=== PATIENT | male | born 1930 | race Caucasian/White ===

== ENCOUNTER 2017-08-03 10:56 | Emergency (ER) | payer OTHER ==
[2017-08-03 11:10] VITALS: BMI 27.4
--- NOTE | 2017-08-03 11:31 | DR.GENAD ---
HPI - PCP Primary Care Physician: MICHAELA HORNE - Complaint/Symptoms Chief Complaint Doctors Comments: Patient presents to the ED with complaint that his heart rate had been changing more frequently than usual. It ranges from 40s-70. Recently he became drowsy and listless according to daughter. He wore a Holter Monitor one year ago but was not an candidate for a pacemaker. He states that the lower heart rate is getting lower. Chief Complaint:: PTS FAMILY STATES " HIS BP HAS BEEN DROPPING AND HIS HEART RATE" .. THIS HAS BEEN GOING ON FOR A WHILE PT SAW .. PT SAW DR. SANTILLAN AND PT HAD 4 AORTIC STENTS FOR AN ANURYSMS AND STENTS PLACED .. PT HAS A HEART MONITOR PLACED AND ITS WAS DECIDED THAT HE DID NOT NEED A PACEMAKER.. Self Treatment fo Chief Complaint: PT IS ALERT AND ABLE TO GIVE HX,, NO DISTRESS NOTED .. - Source History Provided: Patient - Mode of Arrival Mode of Arrival: Wheelchair - Timing Onset of Chief Complaint: 05/03/17 PMH - PMH Past Medical History: Yes Past Medical History: Dyslipidemia, Hypertension Past Surgical History: Yes Surgical History: AAA Repair Past Surgical History Comment: AORTIC STENT.. 10/17/13 - Family History History of Family Medical Conditions: No - Social History Does patient currently use any type of tobacco product: No Have you used tobacco products in the last 12 months: No Type of Tobacco Use: None Does any household member use tobacco: No Alcohol Use: None Do you use any recreational Drugs:: No Lives With: Family Lives Where: Home - infectious screening In the last 2 months have you had wt loss of >10#?: NO Have you had fever, night sweats or hemotysis?: No Have you traveled outside the country in the last 6 months?: No Isolation: Standard ROS - Review of Systems Eyes: No Symptoms Reported ENTM: No Symptoms Reported Respiratoy: No Symptoms Reported Cardiovascular: No Symptoms Reported Gastrointestinal/Abdominal: No Symptoms Reported Genitourinary: No Symptoms Reported Neurological: No Symptoms Reported Musculoskeletal: No Symptoms Reported Integumentary: No Symptoms Reported Hematologic/Lymphatic: No Symptoms Reported Endocrine: No Symptoms Reported Psychiatric: No Symptoms Reported All Other Systems: Reviewed and Negative PE - Vital Signs Vitals: Temperature 97.7 F Pulse Rate [Left Brachial] 53 Pulse Rate 55 Respiratory Rate 18 Blood Pressure [Left Arm] 163/73 Blood Pressure [Right Arm] 127/56 Blood Pressure 196/86 O2 Sat by Pulse Oximetry 97 - General Limitations: No Limitations General Appearance: Alert, In No Apparent Distress - Head Head Exam: Normal Inspection, Atraumatic - Eyes Eye exam: Normal Appearance, PERRL, EOMI - ENT ENT Exam: Normal Exam, Normal Oropharynx External Ear Exam: Normal External Inspection TM/Canal Exam: Bilateral Normal Nose Exam: Normal Nose Exam Mouth Exam: Normal Inspection Throat Exam: Normal Inspection - Neck Neck Exam: Normal Inspection - Chest Chest Inspection: Normal Inspection, Symmetric Chest Wall Rise - Respiratory Respiratory Exam: Normal Lung Sounds Bilat Respiratory Exam: Bilateral Clear to Auscultation - Cardiovascular Cardiovascular Exam: Regular Rate, Normal Rhythm - Abdominal Exam Abdominal Exam: Normal Inspection, Normal Bowel Sounds Abdominal Tenderness: negative: RUQ, RLQ, LUQ, LLQ, Epigastrium, Suprapubic, Diffuse, Mild, Moderate, Severe, Other - Extremities Extremities Exam: Normal Inspection, Full ROM - Back Back Exam: Normal Inspection, Full ROM - Neurologic Neurological Exam: Alert, Oriented X3, CN II-XII Intact - Psychiatric Psychiatric Exam: Normal Affect, Normal Mood - Skin Skin Exam: Warm, Dry, Intact ROR - Labs Reviewed Result Diagrams: 08/03/17 11:42 08/03/17 11:42 Laboratory: WBC 6.7 X10^3/uL (3.6-10.0) 08/03/17 11:42 RBC 4.54 X10^6/uL (4.7-6.0) L 08/03/17 11:42 Hgb 13.9 g/dL (13.5-18.0) 08/03/17 11:42 Hct 40.7 % (42.0-54.0) L 08/03/17 11:42 MCV 89.7 fL (80.0-100.0) 08/03/17 11:42 MCH 30.7 pg (27.0-34.0) 08/03/17 11:42 MCHC 34.3 g/dL (33.0-35.0) 08/03/17 11:42 RDW 13.6 % (11.6-16.5) 08/03/17 11:42 Plt Count 256 X10^3/uL (150.0-450.0) 08/03/17 11:42 MPV 7.1 fL (7.4-11.0) L 08/03/17 11:42 Neut % 59.1 % (42.0-75.0) 08/03/17 11:42 Lymph % 26.5 % (21.0-51.0) 08/03/17 11:42 [place] % 10.3 % (0.0-13.0) 08/03/17 11:42 Eos % 3.1 % (0.9-2.9) H 08/03/17 11:42 Baso % 1.0 % (0.2-1.0) 08/03/17 11:42 Neut # 4.0 x10^3/uL (2.2-4.8) 08/03/17 11:42 Lymph # 1.8 X10^3/uL (1.3-2.9) 08/03/17 11:42 [place] # 0.7 x10^3/uL (0.3-0.8) 08/03/17 11:42 Eos # 0.2 x10^3/uL (0.0-0.2) 08/03/17 11:42 Baso # 0.1 X10^3/uL (0.0-0.1) 08/03/17 11:42 Absolute Nucleated RBC 0.0 /100WBC 08/03/17 11:42 Sodium 137 mmol/L (136-145) 08/03/17 11:42 Corrected Sodium TNP 08/03/17 11:42 Potassium 4.5 mmol/L (3.5-5.1) 08/03/17 11:42 Chloride 104 mmol/L (98-107) 08/03/17 11:42 Carbon Dioxide 25.8 mmol/L (21-32) 08/03/17 11:42 BUN 12 mg/dL (7-18) 08/03/17 11:42 Creatinine 1.52 mg/dL (0.70-1.30) H 08/03/17 11:42 Est GFR (MDRD) Af Amer 56 (>60) L 08/03/17 11:42 Est GFR (MDRD) Non-Af 46 (>60) L 08/03/17 11:42 Glucose 88 mg/dL (65-99) 08/03/17 11:42 Calcium 8.5 mg/dL (8.5-10.1) 08/03/17 11:42 Corrected Calcium 9.1 mg/dL (8.5-10.1) 08/03/17 11:42 Total Bilirubin 0.60 mg/dL (0.2-1.0) 08/03/17 11:42 AST 16 Units/L (15-37) 08/03/17 11:42 ALT 16 Units/L (12-78) 08/03/17 11:42 Alkaline Phosphatase 84 Units/L (46-116) 08/03/17 11:42 Total Protein 7.1 g/dL (6.4-8.2) 08/03/17 11:42 Albumin 3.3 g/dL (3.4-5.0) L 08/03/17 11:42 Globulin 3.8 g/dL (2.5-4.5) 08/03/17 11:42 Albumin/Globulin Ratio 0.9 Ratio (1.1-2.1) L 08/03/17 11:42 - XRAY XRAY Interpreted by: Radiologist - Diagnosis Discharge Problem: Chest pain, rule out acute myocardial infarction, Bradycardia - Discharge Plan Condition: Stable - Follow ups/Referrals Follow ups/Referrals: NFD,None [Primary Care Provider] - 3 days - Instructions
[2017-08-03 11:53] LABS: BASOPHILS # (AUTO) 0.1 X10^3/uL (0.0-0.1); EOSINOPHILS # (AUTO) 0.2 x10^3/uL (0.0-0.2); EOSINOPHILS % (AUTO) 3.1 % (0.9-2.9); HEMATOCRIT 40.7 % (42.0-54.0); HEMOGLOBIN 13.9 g/dL (13.5-18.0); LYMPHOCYTES # (AUTO) 1.8 X10^3/uL (1.3-2.9); LYMPHOCYTES % (AUTO) 26.5 % (21.0-51.0); MEAN CORPUSCULAR HEMOGLOBIN 30.7 pg (27.0-34.0); MEAN CORPUSCULAR HGB CONC 34.3 g/dL (33.0-35.0); MEAN CORPUSCULAR VOLUME 89.7 fL (80.0-100.0); MEAN PLATELET VOLUME 7.1 fL (7.4-11.0); MONOCYTES # (AUTO) 0.7 x10^3/uL (0.3-0.8); MONOCYTES % (AUTO) 10.3 % (0.0-13.0); NEUTROPHILS % (AUTO) 59.1 % (42.0-75.0); PLATELET COUNT 256 X10^3/uL (150.0-450.0); RED BLOOD COUNT 4.54 X10^6/uL (4.7-6.0); RED CELL DISTRIBUTION WIDTH 13.6 % (11.6-16.5); WHITE BLOOD COUNT 6.7 X10^3/uL (3.6-10.0)
[2017-08-03 11:58] LABS: ALANINE AMINOTRANSFERASE 16 Units/L (12-78); ALBUMIN 3.3 g/dL (3.4-5.0); ALKALINE PHOSPHATASE 84 Units/L (46-116); ASPARTATE AMINO TRANSFERASE 16 Units/L (15-37); BLOOD UREA NITROGEN 12 mg/dL (7-18); CALCIUM 8.5 mg/dL (8.5-10.1); CARBON DIOXIDE 25.8 mmol/L (21-32); CHLORIDE 104 mmol/L (98-107); COR CA(FOR HYPOALB) 9.1 mg/dL (8.5-10.1); CREATININE 1.52 mg/dL (0.70-1.30); SODIUM 137 mmol/L (136-145); TOTAL PROTEIN 7.1 g/dL (6.4-8.2); eGFR BLACK RACES 56 (>60); eGFR NON BLACK RACES 46 (>60)
[2017-08-03] MEDS ORDERED: ZOFRAN INJ 4 MG VIAL IVP PRN (12:50)
[2017-08-03 13:05] LABS: CKMB % 1.3 % (<4); CREATINE KINASE 78 Units/L (39-308); CREATINE KINASE MB < 1.0 ng/mL (0-4.0); MAGNESIUM 2.3 mg/dL (1.7-2.9); TROPONIN I < 0.02 ng/mL (0-1.5)
--- NOTE | 2017-08-03 13:40 | RAD ---
HISTORY: Chest pain and Eduard cardia Study: Portable chest Comparison: February 09, 2016 Findings: The trachea is midline. The cardiac silhouette is unremarkable. The lungs are hyperinflated and the re is chronic diffuse interstitial lung disease as before. There is no focal consolidation or effusio n.. The bony thorax is unremarkable. IMPRESSION: 1. Apparent COPD, no definite acute disease. Reported By:
[2017-08-03 18:10] LABS: CKMB % 1.3 % (<4); CREATINE KINASE 75 Units/L (39-308); CREATINE KINASE MB < 1.0 ng/mL (0-4.0); TROPONIN I 0.02 ng/mL (0-1.5)
[2017-08-03] MEDS: LIPITOR TAB 20 MG PO SCH (21:34)
[2017-08-03 23:58] LABS: CKMB % 1.5 % (<4); CREATINE KINASE 68 Units/L (39-308); CREATINE KINASE MB < 1.0 ng/mL (0-4.0); TROPONIN I 0.02 ng/mL (0-1.5)
[2017-08-04 05:42] LABS: CHOL/HDL RATIO 4.1 (0.0-5.0)
[2017-08-04 05:44] LABS: CKMB % 1.6 % (<4); CREATINE KINASE 64 Units/L (39-308); CREATINE KINASE MB < 1.0 ng/mL (0-4.0); TROPONIN I 0.02 ng/mL (0-1.5)
[2017-08-04 06:08] LABS: BASOPHILS # (AUTO) 0.1 X10^3/uL (0.0-0.1); BASOPHILS % (AUTO) 0.9 % (0.2-1.0); EOSINOPHILS # (AUTO) 0.3 x10^3/uL (0.0-0.2); HEMATOCRIT 39.9 % (42.0-54.0); HEMOGLOBIN 13.6 g/dL (13.5-18.0); LYMPHOCYTES # (AUTO) 1.6 X10^3/uL (1.3-2.9); LYMPHOCYTES % (AUTO) 25.6 % (21.0-51.0); MEAN CORPUSCULAR HEMOGLOBIN 30.5 pg (27.0-34.0); MEAN CORPUSCULAR HGB CONC 34.2 g/dL (33.0-35.0); MEAN CORPUSCULAR VOLUME 89.3 fL (80.0-100.0); MEAN PLATELET VOLUME 7.2 fL (7.4-11.0); MONOCYTES # (AUTO) 0.6 x10^3/uL (0.3-0.8); MONOCYTES % (AUTO) 8.9 % (0.0-13.0); NEUTROPHILS # (AUTO) 3.8 x10^3/uL (2.2-4.8); NEUTROPHILS % (AUTO) 60.6 % (42.0-75.0); PLATELET COUNT 248 X10^3/uL (150.0-450.0); RED BLOOD COUNT 4.47 X10^6/uL (4.7-6.0); RED CELL DISTRIBUTION WIDTH 13.5 % (11.6-16.5); WHITE BLOOD COUNT 6.2 X10^3/uL (3.6-10.0)
[2017-08-04] MEDS: NORVASC TAB 5 MG PO SCH (09:33)
[2017-08-04] MEDS: ASPIRIN 81 MG CHEWTAB PO SCH (09:33)
[2017-08-04] MEDS ORDERED: CATAPRES TAB 0.2 MG PO PRN (09:59)
[2017-08-04] MEDS ORDERED: CELECOXIB PO PRN (10:00)
[2017-08-04] MEDS ORDERED: CELEBREX PO PRN (10:02)
--- NOTE | 2017-08-04 11:17 | DR.H&P ---
H&P - History & Physical for Day of: H&P Date: 08/03/17 - Chief Complaint Chief Complaint: chest pain, low blood pressure, low heart rate - Allergies Allergies/Adverse Reactions: Allergies Allergy/AdvReac Type Severity Reaction Status Date / Time No Known Drug Allergies Allergy Verified 08/03/17 11:46 - History of Present Illness History of Present Illness: is a 87 year old patient of ours who presented to the emergency room with complaints of low blood pressure and heart rate. Patient reported that symptoms have been present for a while, but have been worse the past few days. Patient reports having worn a heart monitor ordered by , but it was decided that patient did not require placement of a pacemaker at that time. He reports a history of aortic aneurysm for which 4 aortic stents were placed in 2012 by . Patient states that his heart rate usually fluctuates between 40-70 beats per minute. Patients daughter states that patient has been drowsy and listless today. On arrival to the ER, vitals were 97.7-55-22-97%-196/86. CBC, CMP, EKG, and chest xray were obtained. Abnormal lab values include the following: RBC 4.54, Hct 40.7, MPV 7.1, Creatinine 1.52, GFR af 56, GFR non 46, Albumin 3.3, A/G Ratio 0.9. EKG reported Sinus Rhythm, Rate=61. Chest xray reported apparent COPD, no definite acute disease. Patient admitted to the hospital as observation for further treatment and evaluation of chest pain and bradycardia. We started him on Lipitor 20mg HS and Zofran 4mg iv q8h prn nausea. Serial cardiac enzymes and EKGs will be obtained and patient placed on continuous electronic device monitor. Will follow up with labs in the morning. - Past Medical History Past Medical History: Dyslipidemia, Hypertension Additional Medical History: Left Renal Mass, Back Pain, Spinal Stenosis, AAA repair with aortic stent placement - Past Surgical History Surgical History: AAA Repair - Social History Does patient currently use any type of tobacco product: No Have you used tobacco products in the last 12 months: No Type of Tobacco Use: None Does any household member use tobacco: No Alcohol Use: None - Medications Home Medications: Celecoxib [Celecoxib] 1 cap PO DAILY PRN 08/03/17 [History Confirmed 08/03/17] Clonidine HCl [CATAPRES 0.2 MG TAB *] 0.2 mg PO PRN PRN 08/03/17 [History Confirmed 08/03/17] - Review of Systems Constitutional: Weakness Eyes: No Symptoms Reported ENT: No Symptoms Reported Respiratory: No Symptoms Reported Cardiovascular: Chest Pain Gastrointestinal: No Symptoms Reported Genitourinary: No Symptoms Reported Musculoskeletal: No Symptoms Reported Skin: No Symptoms Reported Neurological: Weakness - Physical Exam Vital Signs: Temperature 97.4 F Pulse Rate [Left Brachial] 49 Pulse Rate 55 Respiratory Rate 18 Blood Pressure [Left Arm] 163/73 Blood Pressure [Right Arm] 177/80 Blood Pressure 196/86 O2 Sat by Pulse Oximetry 97 Oriented: Normal Eyes: Normal Ear: Normal Nose: Normal Throat: Normal Respiratory: Clear Throughout Cardiovascular: Bradycardia : Normal Auscultation: Bowel Sounds: Normal Palpation: Normal Tenderness: Normal Skin: Normal Musculoskeletal: Normal Psychiatric: Normal Mood Description: Calm Affect: Normal Speech Pattern: Clear - Assessment/Plan (1) Chest pain, rule out acute myocardial infarction Status: Acute Plan: SERIAL CARDIAC ENZYMES AND EKG, TELEMETRY, CONTINUE TO MONITOR (2) Bradycardia Status: Acute Plan: SERIAL CARDIAC ENZYMES AND EKG, TELEMETRY, CONTINUE TO MONITOR
[2017-08-04] MEDS: LIPITOR TAB 20 MG PO SCH (21:44)
[2017-08-05 06:06] LABS: BASOPHILS # (AUTO) 0.1 X10^3/uL (0.0-0.1); BASOPHILS % (AUTO) 0.9 % (0.2-1.0); EOSINOPHILS # (AUTO) 0.2 x10^3/uL (0.0-0.2); EOSINOPHILS % (AUTO) 3.4 % (0.9-2.9); HEMATOCRIT 40.5 % (42.0-54.0); LYMPHOCYTES # (AUTO) 1.8 X10^3/uL (1.3-2.9); LYMPHOCYTES % (AUTO) 25.6 % (21.0-51.0); MEAN CORPUSCULAR HEMOGLOBIN 30.6 pg (27.0-34.0); MEAN CORPUSCULAR HGB CONC 34.6 g/dL (33.0-35.0); MEAN CORPUSCULAR VOLUME 88.4 fL (80.0-100.0); MEAN PLATELET VOLUME 7.4 fL (7.4-11.0); MONOCYTES # (AUTO) 0.6 x10^3/uL (0.3-0.8); NEUTROPHILS # (AUTO) 4.3 x10^3/uL (2.2-4.8); NEUTROPHILS % (AUTO) 61.1 % (42.0-75.0); PLATELET COUNT 248 X10^3/uL (150.0-450.0); RED BLOOD COUNT 4.58 X10^6/uL (4.7-6.0); RED CELL DISTRIBUTION WIDTH 13.5 % (11.6-16.5)
[2017-08-05 06:21] LABS: ALANINE AMINOTRANSFERASE 15 Units/L (12-78); ALBUMIN 3.1 g/dL (3.4-5.0); ALKALINE PHOSPHATASE 74 Units/L (46-116); ASPARTATE AMINO TRANSFERASE 16 Units/L (15-37); BLOOD UREA NITROGEN 18 mg/dL (7-18); CALCIUM 8.6 mg/dL (8.5-10.1); CHLORIDE 104 mmol/L (98-107); COR CA(FOR HYPOALB) 9.3 mg/dL (8.5-10.1); CREATININE 1.34 mg/dL (0.70-1.30); SODIUM 138 mmol/L (136-145); TOTAL PROTEIN 6.6 g/dL (6.4-8.2); eGFR BLACK RACES > 60 (>60); eGFR NON BLACK RACES 54 (>60)
--- NOTE | 2017-08-05 06:58 | RAD ---
HISTORY: Shortness of breath Study: Single view of the chest. Comparison: 08/03/2017 Findings: The cardiomediastinal silhouette is normal. No focal consolidations, pleural effusions or pneumothora x. Osseous structures demonstrate no acute abnormality. Redemonstration of increased reticular are th roughout the lungs bilaterally. Hyperexpansion. IMPRESSION: 1. No acute cardiopulmonary process. 2. COPD. Reported By:
[2017-08-05] MEDS: ASPIRIN 81 MG CHEWTAB PO SCH (08:35)
[2017-08-05] MEDS: NORVASC TAB 5 MG PO SCH (08:35)
[2017-08-05 12:45] VITALS: BP 166/73
== END 2017-08-05 15:45 | disposition home or self-care (01) ==
LOC: ER 11:31 → OBS 15:00 → MED/SURG 19:37
PROVIDERS: ADMIT Internal Medicine; ATTEND Internal Medicine
DX: R07.89 Other chest pain (principal); R00.1 Bradycardia, unspecified; I95.89 Other hypotension; J44.9 Chronic obstructive pulmonary disease, unspecified; E78.2 Mixed hyperlipidemia; I10 Essential (primary) hypertension; R94.31 Abnormal electrocardiogram [ECG] [EKG]
CPT/HCPCS: 36415; 71010; 80053; 80061; 82550; 82553; 83735; 84484; 85025; 85610; 93005; 93010; 94760; 96365; 99284; A4216; A4222; G0378

== ENCOUNTER → 2017-09-21 | Outpatient (CLI) | payer OTHER ==
--- NOTE | 2017-09-21 10:10 | US ---
HISTORY: Follow-up abdominal aortic aneurysm, status post graft. Study: Ultrasound of the abdominal aorta Comparison: CTA of the abdomen done 10/04/2016. Technique: Grayscale and color Doppler imaging of the abdominal aorta is provided. Findings: There is an infrarenal abdominal aortic aneurysm measures 3.18 cm in maximum AP diameter. This extend s for a length of about 4 cm. No evidence of dissection or leakage is seen. There is good color flow involving through the endo graft region into both common iliac arteries. IMPRESSION: Stable infrarenal abdominal aortic aneurysm. This measures about 3.18 cm in maximum AP diameter and e xtends for a length of 4 cm. No dissection or leakage is seen. There is good color flow present throu gh the aortic endograft into both common iliac arteries . Reported By:
== END ==
LOC: RAD 09:03
PROVIDERS: ATTEND Thoracic Surgery (Cardiothoracic Vascular Surgery)
DX: I71.4 Abdominal aortic aneurysm, without rupture (principal)
CPT/HCPCS: 76770

== ENCOUNTER → 2017-12-11 | Outpatient (CLI) | payer OTHER ==
[2017-12-11 09:26] LABS: BASOPHILS # (AUTO) 0.1 X10^3/uL (0.0-0.1); BASOPHILS % (AUTO) 1.1 % (0.2-1.0); EOSINOPHILS # (AUTO) 0.2 x10^3/uL (0.0-0.2); EOSINOPHILS % (AUTO) 2.2 % (0.9-2.9); HEMATOCRIT 42.6 % (42.0-54.0); HEMOGLOBIN 14.5 g/dL (13.5-18.0); LYMPHOCYTES # (AUTO) 1.6 X10^3/uL (1.3-2.9); LYMPHOCYTES % (AUTO) 22.4 % (21.0-51.0); MEAN CORPUSCULAR HEMOGLOBIN 30.5 pg (27.0-34.0); MEAN CORPUSCULAR VOLUME 89.6 fL (80.0-100.0); MEAN PLATELET VOLUME 7.2 fL (7.4-11.0); MONOCYTES # (AUTO) 0.7 x10^3/uL (0.3-0.8); MONOCYTES % (AUTO) 9.7 % (0.0-13.0); NEUTROPHILS # (AUTO) 4.6 x10^3/uL (2.2-4.8); NEUTROPHILS % (AUTO) 64.6 % (42.0-75.0); PLATELET COUNT 221 X10^3/uL (150.0-450.0); RED BLOOD COUNT 4.75 X10^6/uL (4.7-6.0); RED CELL DISTRIBUTION WIDTH 13.3 % (11.6-16.5); WHITE BLOOD COUNT 7.2 X10^3/uL (3.6-10.0)
[2017-12-11 09:28] LABS: BLOOD UREA NITROGEN 10 mg/dL (7-18); CALCIUM 8.7 mg/dL (8.5-10.1); CARBON DIOXIDE 27.5 mmol/L (21-32); CHLORIDE 105 mmol/L (98-107); CREATININE 1.38 mg/dL (0.70-1.30); SODIUM 140 mmol/L (136-145); eGFR BLACK RACES > 60 (>60); eGFR NON BLACK RACES 52 (>60)
== END ==
LOC: LAB 09:04
PROVIDERS: ATTEND Internal Medicine Clinical Cardiac Electrophysiology
DX: Z79.899 Other long term (current) drug therapy (principal)
CPT/HCPCS: 36415; 80048; 85025

== ENCOUNTER 2018-02-19 16:22 | Emergency (ER) | payer OTHER ==
--- NOTE | 2018-02-19 17:01 | DR.GENAD ---
HPI - PCP Primary Care Physician: MICHAELA - HPI Comment HPI Comment: PATIENT SAID HIS BP MED WAS DROPPING HIS BP. MED D/C. BP GOT HIGH. METOPROLOL GIVEN. BP DROP. PATIENT STOP MED 3 TO 4 DAYS AGO. NOW BP HIGH. HE FEELS DIZZY AND DRUNK. HE IS ATAXIC WHEN HE WALKS AND HAVE A MILD HEADACHE. NO FEVER. - Complaint/Symptoms Chief Complaint Doctors Comments: DIZZINESS AND ATAXIA TIMES 4 DAYS. Chief Complaint:: PATIENT STATED THAT HE HAS BEEN DIZZY FOR THE LAST 4 DAYS. HE STATED HE WAS STARTED ON NEW BP MEDS AND IT HAS STARTED BOTTOMS OUT. - Nurses notes reviewed Nurses Notes Review: Yes - Source History Provided: Patient - Mode of Arrival Mode of Arrival: Wheelchair - Timing Onset of Chief Complaint: 02/15/18 Came on: Suddenly - Duration Duration: Constant Duration: Days - Severity Severity: Moderate PMH - PMH Past Medical History: Yes Past Medical History: Dyslipidemia, Hypertension Past Surgical History: Yes Surgical History: AAA Repair Past Surgical History Comment: PACEMAKER - Family History History of Family Medical Conditions: No - Social History Does patient currently use any type of tobacco product: No Have you used tobacco products in the last 12 months: No Type of Tobacco Use: None Does any household member use tobacco: No Alcohol Use: None Do you use any recreational Drugs:: No Lives With: Family Lives Where: Home - infectious screening In the last 2 months have you had wt loss of >10#?: NO Have you had fever, night sweats or hemotysis?: No Have you traveled outside the country in the last 6 months?: No Isolation: Standard ROS - Review of Systems Constitutional: Weakness, Fatigue. negative: Chills, Fever Eyes: negative: Eye Pain, Blurred Vision, Discharge, Photophobia, Diplopia ENTM: negative: Ear Pain, Nose Discharge, Nose Congestion, Throat Pain Respiratoy: Short of Breath (ON EXERTION.). negative: Productive Cough, Non- Productive Cough, Wheezing, Hemoptysis Cardiovascular: negative: Chest Pain, Edema, Palpitations, Syncope Gastrointestinal/Abdominal: negative: Abdominal Pain, Constipation, Diarrhea, Nausea, Vomiting Genitourinary: negative: Dysuria, Hematuria Neurological: Headache, Dizziness. negative: Weakness Musculoskeletal: No Symptoms Reported Integumentary: No Symptoms Reported Hematologic/Lymphatic: Easy Bleeding, Easy Bruising Endocrine: No Symptoms Reported All Other Systems: Reviewed and Negative PE - Vital Signs Vitals: Temperature 97.1 F Pulse Rate [Left Brachial] 63 Pulse Rate 63 Respiratory Rate 16 Blood Pressure [Left Arm] 171/79 Blood Pressure [Right Arm] 166/73 Blood Pressure 215/107 O2 Sat by Pulse Oximetry 99 - General Limitations: No Limitations General Appearance: Alert - Head Head Exam: Normal Inspection - Eyes Eye exam: Normal Appearance - ENT ENT Exam: Normal External Ear Exam External Ear Exam: Normal External Inspection TM/Canal Exam: Bilateral Normal Nose Exam: Normal Nose Exam Mouth Exam: Normal Inspection Throat Exam: Normal Inspection - Neck Neck Exam: Normal Inspection - Chest Chest Inspection: Symmetric Chest Wall Rise - Respiratory Respiratory Exam: Normal Lung Sounds Bilat Respiratory Exam: Bilateral Clear to Auscultation - Cardiovascular Cardiovascular Exam: Regular Rate, Normal Rhythm, Normal Heart Sounds - Abdominal Exam Abdominal Exam: Normal Bowel Sounds, Soft. negative: Tenderness - Extremities Extremities Exam: Normal Inspection. negative: Edema - Back Back Exam: Normal Inspection - Neurologic Neurological Exam: Alert, Oriented X3, Other (ATAXIA) - Psychiatric Psychiatric Exam: Normal Affect, Normal Mood, Other (ATAXIA) - Skin Skin Exam: Normal Color MDM - Additional Information Additional Information Obtained From: Family - Differential Diagnosis Differential Diagnosis: DIZZINESS, ATAXIA, HYPERTENSION, GA, CVA Course - Treatment Treatment: SEE ORDERS. - Consultation Consultation Comments: DISCUSS PATIENT WITH DR. JENNINGS. HE WILL ADMIT PATIENT. - Education/Counseling Education/Counseling: Patient, Family, Education Educated On: Diagnosis ROR - Labs Reviewed Laboratory Results Reviewed?: Yes Result Diagrams: 02/19/18 17:08 02/19/18 17:08 Laboratory: WBC 7.5 X10^3/uL (3.6-10.0) 02/19/18 17:08 RBC 4.69 X10^6/uL (4.7-6.0) L 02/19/18 17:08 Hgb 14.4 g/dL (13.5-18.0) 02/19/18 17:08 Hct 41.7 % (42.0-54.0) L 02/19/18 17:08 MCV 88.8 fL (80.0-100.0) 02/19/18 17:08 MCH 30.7 pg (27.0-34.0) 02/19/18 17:08 MCHC 34.6 g/dL (33.0-35.0) 02/19/18 17:08 RDW 14.0 % (11.6-16.5) 02/19/18 17:08 Plt Count 170 X10^3/uL (150.0-450.0) 02/19/18 17:08 MPV 7.3 fL (7.4-11.0) L 02/19/18 17:08 Neut % (Auto) 63.3 % (42.0-75.0) 02/19/18 17:08 Lymph % (Auto) 23.9 % (21.0-51.0) 02/19/18 17:08 [place] % (Auto) 8.9 % (0.0-13.0) 02/19/18 17:08 Eos % (Auto) 2.9 % (0.9-2.9) 02/19/18 17:08 Baso % (Auto) 1.0 % (0.2-1.0) 02/19/18 17:08 Neut # (Auto) 4.8 x10^3/uL (2.2-4.8) 02/19/18 17:08 Lymph # (Auto) 1.8 X10^3/uL (1.3-2.9) 02/19/18 17:08 [place] # (Auto) 0.7 x10^3/uL (0.3-0.8) 02/19/18 17:08 Eos # (Auto) 0.2 x10^3/uL (0.0-0.2) 02/19/18 17:08 Baso # (Auto) 0.1 X10^3/uL (0.0-0.1) 02/19/18 17:08 Absolute Nucleated RBC 0.0 /100WBC 02/19/18 17:08 Sodium 141 mmol/L (136-145) 02/19/18 17:08 Corrected Sodium TNP 02/19/18 17:08 Potassium 4.1 mmol/L (3.5-5.1) 02/19/18 17:08 Chloride 106 mmol/L (98-107) 02/19/18 17:08 Carbon Dioxide 26.4 mmol/L (21-32) 02/19/18 17:08 BUN 16 mg/dL (7-18) 02/19/18 17:08 Creatinine 1.36 mg/dL (0.70-1.30) H 02/19/18 17:08 Est GFR (MDRD) Af Amer > 60 (>60) 02/19/18 17:08 Est GFR (MDRD) Non-Af 53 (>60) L 02/19/18 17:08 Glucose 100 mg/dL (65-99) H 02/19/18 17:08 Calcium 8.5 mg/dL (8.5-10.1) 02/19/18 17:08 Corrected Calcium TNP 02/19/18 17:08 Total Bilirubin 0.80 mg/dL (0.2-1.0) 02/19/18 17:08 AST 16 Units/L (15-37) 02/19/18 17:08 ALT 21 Units/L (12-78) 02/19/18 17:08 Alkaline Phosphatase 90 Units/L (46-116) 02/19/18 17:08 Creatine Kinase 39 Units/L (39-308) 02/19/18 17:08 CK-MB (CK-2) < 1.0 ng/mL (0-4.0) 02/19/18 17:08 CK/CKMB % Calc 2.6 % (<4) 02/19/18 17:08 Troponin I < 0.02 ng/mL (0-1.5) 02/19/18 17:08 Total Protein 7.5 g/dL (6.4-8.2) 02/19/18 17:08 Albumin 3.7 g/dL (3.4-5.0) 02/19/18 17:08 Globulin 3.8 g/dL (2.5-4.5) 02/19/18 17:08 Albumin/Globulin Ratio 1.0 Ratio (1.1-2.1) L 02/19/18 17:08 - XRAY XRAY Interpreted by: Radiologist XRAY Findings: REPORT DISCUSS WITH PATIENT. - EKG Rhythm: Paced (EKG NOTED) - Diagnosis Discharge Problem: Dizziness, Ataxia, Uncontrolled hypertension - Discharge Plan Disposition: ADMITTED INPATIENT Condition: Stable - Follow ups/Referrals - Instructions
[2018-02-19 17:17] LABS: BASOPHILS # (AUTO) 0.1 X10^3/uL (0.0-0.1); EOSINOPHILS # (AUTO) 0.2 x10^3/uL (0.0-0.2); EOSINOPHILS % (AUTO) 2.9 % (0.9-2.9); HEMATOCRIT 41.7 % (42.0-54.0); HEMOGLOBIN 14.4 g/dL (13.5-18.0); LYMPHOCYTES # (AUTO) 1.8 X10^3/uL (1.3-2.9); LYMPHOCYTES % (AUTO) 23.9 % (21.0-51.0); MEAN CORPUSCULAR HEMOGLOBIN 30.7 pg (27.0-34.0); MEAN CORPUSCULAR HGB CONC 34.6 g/dL (33.0-35.0); MEAN CORPUSCULAR VOLUME 88.8 fL (80.0-100.0); MEAN PLATELET VOLUME 7.3 fL (7.4-11.0); MONOCYTES # (AUTO) 0.7 x10^3/uL (0.3-0.8); MONOCYTES % (AUTO) 8.9 % (0.0-13.0); NEUTROPHILS # (AUTO) 4.8 x10^3/uL (2.2-4.8); NEUTROPHILS % (AUTO) 63.3 % (42.0-75.0); PLATELET COUNT 170 X10^3/uL (150.0-450.0); RED BLOOD COUNT 4.69 X10^6/uL (4.7-6.0); WHITE BLOOD COUNT 7.5 X10^3/uL (3.6-10.0)
--- NOTE | 2018-02-19 17:45 | CT ---
CT HEAD WITHOUT CONTRAST CLINICAL HISTORY: 87-year-old male with dizziness and ataxia. COMPARISON: None. TECHNIQUE: Multiple, non-contrasted axial CT images were obtained from the skull base to the cranial vertex. Coronal and sagittal reformats were performed. FINDINGS: There are no abnormal intra- or extra-axial fluid collections, midline shift, or mass effec t. Sandoval-white differentiation is normal. Global cortical involutional changes are present that are ex am is for the patient's stated age. The ventricular system is enlarged but commensurate with the degr ee of sulcal prominence. Chronic lacunar infarctions bilateral basal ganglia and within the insular l obes. Periventricular and supraventricular white matter hypodensity is present that is nonspecific in appearance, but most likely to represent microvascular ischemic changes. Atherosclerotic vascular ca lcification is present within the carotid siphons and distal vertebral arteries. The imaged paranasal sinuses, mastoid air cells, and tympanic spaces are clear. Bilateral lens implan ts. IMPRESSION: 1. No definite evidence of an acute intracranial process. If clinical concern persists for acute str roque, consider MRI/MRA brain. 2. 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 3. Severe microvascular white matter ischemic changes, with associated volume loss. Reported By:
[2018-02-19 17:47] LABS: BLOOD UREA NITROGEN 16 mg/dL (7-18); CALCIUM 8.5 mg/dL (8.5-10.1); CARBON DIOXIDE 26.4 mmol/L (21-32); CHLORIDE 106 mmol/L (98-107); CREATININE 1.36 mg/dL (0.70-1.30); SODIUM 141 mmol/L (136-145); TROPONIN I < 0.02 ng/mL (0-1.5); eGFR BLACK RACES > 60 (>60); eGFR NON BLACK RACES 53 (>60)
[2018-02-19 18:02] LABS: ALANINE AMINOTRANSFERASE 21 Units/L (12-78); ALBUMIN 3.7 g/dL (3.4-5.0); ALKALINE PHOSPHATASE 90 Units/L (46-116); ASPARTATE AMINO TRANSFERASE 16 Units/L (15-37); CKMB % 2.6 % (<4); CREATINE KINASE 39 Units/L (39-308); CREATINE KINASE MB < 1.0 ng/mL (0-4.0); TOTAL PROTEIN 7.5 g/dL (6.4-8.2)
--- NOTE | 2018-02-19 18:37 | RAD ---
HISTORY: 87-year-old male with shortness of breath dizziness. Study: Frontal view of the chest. Comparison: Chest radiograph 08/05/2017 Findings: Interval placement left chest wall AICD. The trachea is midline. The cardiac silhouette is stable with chronic prominence of the perihilar marilou ng markings/interstitium. The lungs are clear without focal consolidation, effusion or pneumothorax. Soft tissues are unremarkable. Osseous structures are unremarkable. IMPRESSION: 1. No acute cardiopulmonary disease. Reported By:
[2018-02-19] MEDS: CATAPRES TAB 0.1 MG PO SCH ×2 (19:30→21:39)
[2018-02-19 19:40] LABS: BILIRUBIN,URINE NEGATIVE (NEGATIVE); BLOOD/HEMOGLOBIN,URINE NEGATIVE (NEGATIVE); GLUCOSE, URINE NEGATIVE (NEGATIVE); KETONES,URINE NEGATIVE (NEGATIVE); LEUKOCYTE ESTERASE ,URINE NEGATIVE (NEGATIVE); NITRITES,URINE NEGATIVE (NEGATIVE); PROTEIN,URINE 2+ (NEGATIVE); UROBILINOGEN,URINE NORMAL (NORMAL)
[2018-02-19 19:51] LABS: APPEARANCE,URINE CLEAR (CLEAR); COLOR,URINE YELLOW (YELLOW); RBC,URINE 0-2 /HPF (NONE SEEN)
[2018-02-19 19:52] LABS: BACTERIA,URINE NEGATIVE /HPF (NEGATIVE); SQUAMOUS EPITHELIAL CELL,UR FEW /HPF (NEGATIVE)
[2018-02-19 20:48] VITALS: BMI 25.5
[2018-02-19] MEDS: NS 1000 ML 1,000 ML IV SCH (21:39)
[2018-02-20 00:16] LABS: CKMB % 2.8 % (<4); CREATINE KINASE 36 Units/L (39-308); CREATINE KINASE MB < 1.0 ng/mL (0-4.0); TROPONIN I < 0.02 ng/mL (0-1.5)
[2018-02-20 06:08] LABS: BASOPHILS # (AUTO) 0.1 X10^3/uL (0.0-0.1); BASOPHILS % (AUTO) 1.1 % (0.2-1.0); EOSINOPHILS # (AUTO) 0.2 x10^3/uL (0.0-0.2); EOSINOPHILS % (AUTO) 3.9 % (0.9-2.9); HEMATOCRIT 37.9 % (42.0-54.0); HEMOGLOBIN 13.2 g/dL (13.5-18.0); LYMPHOCYTES # (AUTO) 1.5 X10^3/uL (1.3-2.9); MEAN CORPUSCULAR HEMOGLOBIN 30.8 pg (27.0-34.0); MEAN CORPUSCULAR HGB CONC 34.8 g/dL (33.0-35.0); MEAN CORPUSCULAR VOLUME 88.5 fL (80.0-100.0); MEAN PLATELET VOLUME 7.7 fL (7.4-11.0); MONOCYTES # (AUTO) 0.6 x10^3/uL (0.3-0.8); MONOCYTES % (AUTO) 9.3 % (0.0-13.0); NEUTROPHILS # (AUTO) 3.7 x10^3/uL (2.2-4.8); NEUTROPHILS % (AUTO) 60.7 % (42.0-75.0); PLATELET COUNT 155 X10^3/uL (150.0-450.0); RED BLOOD COUNT 4.28 X10^6/uL (4.7-6.0); RED CELL DISTRIBUTION WIDTH 14.1 % (11.6-16.5); WHITE BLOOD COUNT 6.1 X10^3/uL (3.6-10.0)
[2018-02-20 06:26] LABS: ALANINE AMINOTRANSFERASE 16 Units/L (12-78); ALBUMIN 3.1 g/dL (3.4-5.0); ALKALINE PHOSPHATASE 77 Units/L (46-116); ASPARTATE AMINO TRANSFERASE 13 Units/L (15-37); BLOOD UREA NITROGEN 17 mg/dL (7-18); CALCIUM 7.8 mg/dL (8.5-10.1); CARBON DIOXIDE 25.8 mmol/L (21-32); CHLORIDE 108 mmol/L (98-107); COR CA(FOR HYPOALB) 8.5 mg/dL (8.5-10.1); CREATININE 1.34 mg/dL (0.70-1.30); SODIUM 142 mmol/L (136-145); TOTAL PROTEIN 6.4 g/dL (6.4-8.2); eGFR BLACK RACES > 60 (>60); eGFR NON BLACK RACES 54 (>60)
[2018-02-20 07:02] LABS: CREATINE KINASE 33 Units/L (39-308); TROPONIN I < 0.02 ng/mL (0-1.5)
[2018-02-20] MEDS: NS 1000 ML 1,000 ML IV SCH ×3 (08:11→20:50)
[2018-02-20] MEDS: CATAPRES TAB 0.1 MG PO SCH ×2 (08:21→20:49)
[2018-02-20] MEDS ORDERED: ULTRAM PO PRN (10:09)
[2018-02-20] MEDS: LIPITOR TAB 10 MG PO SCH (10:50)
[2018-02-20] MEDS ORDERED: TOPROL XL PO SCH (11:00)
--- NOTE | 2018-02-20 18:12 | VAS ---
HISTORY: Dizziness and ataxia. Study: Carotid ultrasound. Comparison: None. Technique: Multiple smith scale and color flow Doppler images of the right and left carotid arterial s ystem were obtained. The vertebral arterial system was evaluated as well. Findings: Normal color flow Doppler is seen throughout the right and left carotid arterial system. Maximum inte rnal carotid artery velocity of 92 centimeters/second on the right and maximum internal carotid arter y velocity on the left of 125 centimeters/second. Right ICA/CCA ratio of 1.38 and left ICA/CCA ratio 1.79. [id number] calcific plaque, which is more prominent at the carotid bulbs. The right and left vertebral arteries demonstrate antegrade flow. IMPRESSION: 1. Less than 50% stenosis of the right internal carotid artery. 2. 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 Reported By:
[2018-02-20] MEDS: ASPIRIN EC 81 MG PO SCH (21:31)
[2018-02-21] MEDS: NS 1000 ML 1,000 ML IV SCH ×2 (05:43→10:12)
[2018-02-21 06:04] LABS: BASOPHILS % (AUTO) 0.6 % (0.2-1.0); EOSINOPHILS # (AUTO) 0.2 x10^3/uL (0.0-0.2); HEMATOCRIT 37.5 % (42.0-54.0); LYMPHOCYTES # (AUTO) 1.6 X10^3/uL (1.3-2.9); LYMPHOCYTES % (AUTO) 22.3 % (21.0-51.0); MEAN CORPUSCULAR HEMOGLOBIN 30.9 pg (27.0-34.0); MEAN CORPUSCULAR HGB CONC 34.5 g/dL (33.0-35.0); MEAN CORPUSCULAR VOLUME 89.5 fL (80.0-100.0); MONOCYTES # (AUTO) 0.6 x10^3/uL (0.3-0.8); MONOCYTES % (AUTO) 8.2 % (0.0-13.0); NEUTROPHILS # (AUTO) 4.7 x10^3/uL (2.2-4.8); NEUTROPHILS % (AUTO) 65.9 % (42.0-75.0); PLATELET COUNT 149 X10^3/uL (150.0-450.0); RED BLOOD COUNT 4.19 X10^6/uL (4.7-6.0); WHITE BLOOD COUNT 7.1 X10^3/uL (3.6-10.0)
[2018-02-21 06:28] LABS: BLOOD UREA NITROGEN 18 mg/dL (7-18); CALCIUM 8.2 mg/dL (8.5-10.1); CARBON DIOXIDE 25.3 mmol/L (21-32); CHLORIDE 106 mmol/L (98-107); CREATININE 1.38 mg/dL (0.70-1.30); SODIUM 140 mmol/L (136-145); eGFR BLACK RACES > 60 (>60); eGFR NON BLACK RACES 52 (>60)
[2018-02-21] MEDS: LIPITOR TAB 10 MG PO SCH (08:22)
[2018-02-21] MEDS: CATAPRES TAB 0.1 MG PO SCH (08:22)
[2018-02-21] MEDS: ASPIRIN EC 81 MG PO SCH (08:22)
[2018-02-21] MEDS ORDERED: CELEBREX PO SCH (09:00)
--- NOTE | 2018-02-21 10:31 | DR.H&P ---
H&P - History & Physical for Day of: H&P Date: 02/19/18 - Chief Complaint Chief Complaint: GENERALIZED WEAKNESS AND DIZZINESS - Allergies Allergies/Adverse Reactions: Allergies Allergy/AdvReac Type Severity Reaction Status Date / Time No Known Drug Allergies Allergy Verified 02/19/18 20:49 - History of Present Illness History of Present Illness: IS A 87 YEAR OLD PATIENT OF OURS WHO PRESENTED TO THE EMERGENCY ROOM WITH COMPLAINTS OF GENERALIZED WEAKNESS AND DIZZINESS FOR THE PAST 4 DAYS. PATIENT STATED THAT HE WAS RECENTLY STARTED ON NEW BLOOD PRESSURE MEDICATION AND SINCE TAKING IT, HIS BLOOD PRESSURE HAS BOTTOMED OUT. PATIENT REPORTS THAT HE DECIDED TO STOP TAKING THE MEDICATION THREE DAYS AGO, HOWEVER, HE CONTINUES WITH DIZZINESS AND WEAKNESS. ASSOCIATED SYMPTOMS INCLUDE MILD HEADACHE, FATIGUE, SHORTNESS OF BREATH, AND ATAXIA. ON ARRIVAL, VITALS WERE 97.1-63-20-98%-215/107. LABS WERE OBTAINED. ABNORMAL LAB VALUES INCLUDE THE FOLLOWING: RBC 4.69, HCT 41.7, CREATININE 1.36, GFR 53, GLUCOSE 100. CARDIAC ENZYMES WITHIN NORMAL LIMITS. URINALYSIS REVEALED WBC 0-2, RBC 0-2, URINE PROTEIN 2+. A BRAIN CT WAS OBTAINED AND REVEALED NO DEFINITE EVIDENCE OF AN ACUTE INTRACRANIAL PROCESS. 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 SEVERE MICROVASCULAR WHITE MATTER ISCHEMIC CHANGES, WITH ASSOCIATED VOLUME LOSS. A CHEST XRAY REVEALED NO ACUTE CARDIOPULMONARY DISEASE. EKG REVEALED ATRIAL PACED COMPLEXES WITH HR 67. HE WAS GIVEN CATAPRES 0.1MG X 2 DOSES IN THE ER. A DECREASE IN BLOOD PRESSURE TO 168/ 90 NOTED. PATIENT WAS ADMITTED FOR FURTHER EVALUATION AND TREATMENT. HE WAS STARTED ON NORMAL SALINE AT 50ML/HR AND CLONIDINE 0.1MG PO BID. WE PLAN TO FOLLOW UP WITH AM LABS AND CHEST XRAY AND CONTINUE TO MONITOR PATIENT. - Past Medical History Past Medical History: Dyslipidemia, Hypertension Additional Medical History: Left Renal Mass, Back Pain, Spinal Stenosis, AAA repair with aortic stent placement - Past Surgical History Surgical History: AAA Repair - Social History Does patient currently use any type of tobacco product: No Have you used tobacco products in the last 12 months: No Type of Tobacco Use: None Does any household member use tobacco: No Alcohol Use: None Drug Use: None - Medications Home Medications: Aspirin EC [ASPIRIN EC 81 MG *] 81 mg PO DAILY 02/20/18 [History Confirmed 02/20] Atorvastatin Calcium 1 tab PO DAILY 02/20/18 [History Confirmed 02/20/18] Celecoxib 1 cap PO DAILY 02/20/18 [History Confirmed 02/20/18] Tramadol HCl 1 tab PO QID PRN 02/20/18 [History Confirmed 02/20/18] - Review of Systems Constitutional: Weakness, Malaise Eyes: No Symptoms Reported ENT: No Symptoms Reported Respiratory: Shortness of Breath Cardiovascular: No Symptoms Reported Gastrointestinal: No Symptoms Reported Genitourinary: No Symptoms Reported Musculoskeletal: No Symptoms Reported Skin: No Symptoms Reported Neurological: Weakness, Incoordination, Other (HEACACHE, ATAXIA ) - Physical Exam Vital Signs: Temperature 97.6 F Pulse Rate [Left Brachial] 63 Pulse Rate 63 Respiratory Rate 20 Blood Pressure [Left Arm] 140/64 Blood Pressure [Right Arm] 185/93 Blood Pressure 215/107 O2 Sat by Pulse Oximetry 95 Oriented: Normal Eyes: Normal Ear: Normal Nose: Normal Throat: Normal Respiratory: Clear Throughout Cardiovascular: Normal : Normal Auscultation: Bowel Sounds: Normal Palpation: Normal Tenderness: Normal Skin: Normal Musculoskeletal: Normal Psychiatric: Normal Mood Description: Calm Affect: Normal Speech Pattern: Clear - Assessment/Plan (1) Dizziness Status: Acute Plan: ADMIT, MONITOR BLOOD PRESSURE, IV FLUIDS, CAROTID ARTERY US IN AM, CONTINUE TO MONITOR NIBP. (2) Ataxia Status: Acute Plan: ADMIT, MONITOR BLOOD PRESSURE, IV FLUIDS, CAROTID ARTERY US IN AM, CONTINUE TO MONITOR NIBP. (3) Uncontrolled hypertension Status: Acute Plan: ADMIT, MONITOR BLOOD PRESSURE, IV FLUIDS, CAROTID ARTERY US IN AM, CONTINUE TO MONITOR NIBP.
[2018-02-21 12:06] VITALS: BP 159/70
[2018-02-21 12:08] LABS: ALANINE AMINOTRANSFERASE 15 Units/L (12-78); ALBUMIN 3.2 g/dL (3.4-5.0); ALKALINE PHOSPHATASE 73 Units/L (46-116); ASPARTATE AMINO TRANSFERASE 16 Units/L (15-37); COR CA(FOR HYPOALB) 8.8 mg/dL (8.5-10.1); TOTAL PROTEIN 6.3 g/dL (6.4-8.2)
== END 2018-02-21 13:05 | disposition home or self-care (01) ==
LOC: ER 16:31 → MED/SURG 18:53
PROVIDERS: ADMIT Internal Medicine; ATTEND Internal Medicine
DX: R42 Dizziness and giddiness (principal); R27.0 Ataxia, unspecified; I10 Essential (primary) hypertension; R94.31 Abnormal electrocardiogram [ECG] [EKG]; Z95.0 Presence of cardiac pacemaker
CPT/HCPCS: 36415; 70450; 71045; 80053; 81001; 82550; 82553; 84484; 85025; 93005; 93880; 94760; 96365; 99284; 99285; A4222; G8990; G8991; G0378